=== PATIENT | female | born 1950 | race Caucasian/White ===

== ENCOUNTER → 2017-05-09 | Outpatient (CLI) | payer MEDICARE ==
[~2017-05-09] MED LIST: ALEN70TA3 PO; ALLO300T PO; ATEN100T PO; ATOR10TA PO; BRIN8DRO OP; CHLO10CA5 PO; CHOL100013 PO; CYCL10TA2 PO; IOHEXOL 180 MG/ML 10 ML VIAL. ONE; LISI1TAB3 PO; MELO15TA23 PO; METF750T2 PO; NAPR500T PO; TRAM50TA PO; TRAV5DRO EACHEYE; glaucoma eye drops; methylPREDNISolone ACETATE 40 MG/ML VIAL. ONE; methylPREDNISolone ACETATE 80 MG/ML VIAL. ONE
--- NOTE | 2017-05-10 01:34 | PAIN ---
DATE OF SERVICE: 05/09/2017 DIAGNOSES: Lumbar radiculopathy with lumbar degenerative disk disease, spinal stenosis and post-lumbar laminectomy syndrome. HISTORY OF PRESENT ILLNESS: The patient is a 66-year-old female who returns for followup, last seen on 07/11/2016. The patient did very well after caudal epidural steroid injections at that time with about 75-80% improvement overall. The patient reports she did very well for several months. The pain has returned now over the past 1 month or so in the low back and bilateral lower extremities, slightly worse on the right than the left, across the low back, radiating to the posterior gluteus, posterior thighs, posterior calf. It is worse with walking and standing, better with sitting or lying down. She rates the pain an 8 on a scale of 10 at all times; it is currently an 8 today. The patient reports it is aching and severe, it can be constant with walking and standing with tingling in her feet and burning in her feet and sitting down. The patient reports that she has been sleeping well, it has not been awakening her from sleep. She has no new motor or sensory deficits, no new bowel or bladder incontinence or other complaints, but still increased pain as noted and returning in a similar distribution which she had last fall. PAST MEDICAL HISTORY: Significant for glaucoma, cataracts, hypertension, dizziness, arthritis, headaches. PAST SURGICAL HISTORY: Previous surgeries include hysterectomy, knee surgery in 1972, carpal tunnel repair in 1993 on the right. ALLERGIES: THE PATIENT IS ALLERGIC TO SULFA AND LATEX. CURRENT MEDICATIONS: Include lisinopril, chlordiazepoxide, Fosamax, atenolol, meloxicam, metformin, vitamin D, Travatan eyedrops, Simbrinza eye drops. PHYSICAL EXAMINATION: VITAL SIGNS: Today, the patient's blood pressure is 132/60, pulse 67, respirations 18, temperature 98.2 degrees Fahrenheit, height is 5 feet 3 inches, weight is 185 pounds. GENERAL: The patient is awake, alert, oriented, appropriate, has very pleasant demeanor. HEENT: Exam shows normocephalic and atraumatic. Extraocular movements are intact and symmetrical. Oral cavity shows mucous membranes are moist and pink. Dentition is intact. NECK: Shows anterior throat supple without palpable lymphadenopathy noted. Swallow reflex is symmetrical. Neck shows full rotational motion of the cervical spine without difficulty or tenderness including extension and flexion. CHEST: Shows normal on inspection. Breath sounds are clear to auscultation bilaterally. HEART: Shows S1 and S2 clear. No murmurs auscultated. ABDOMEN: Obese, soft, nontender, nondistended. No palpable organomegaly. No new rebound or guarding demonstrated. BACK: Shows spine grossly in the midline. Normal-appearing thoracic kyphosis and mild flattening of the lumbar lordotic curvature. Well-healed midline surgical scar is again noted; with inspection, it shows symmetrical paraspinous musculature bilaterally throughout the upper, middle and lower distribution; with palpation, it shows some tenderness in the middle and lower distribution of paraspinous muscles, only diffusely without radiation. No tenderness over the spinous processes, sacrum or sacroiliac regions. The patient shows good rotational motion both laterally as well as extension and flexion of the lumbar spine without significant tenderness. EXTREMITIES: Lower extremities show deep tendon reflexes at 1+ in the patellar and tendo calcaneus tendons are equal. Motor exam is strong with 5/5 dorsiflexion, extension, quadriceps and hamstring flexion and symmetrical as well. Peripheral pulses are 1+ posterior tibial and dorsalis pedis pulses. No peripheral edema is noted. No clubbing, no cyanosis. The patient is able to stand, stand on her toes without significant difficulty. She is walking with a cane, however, in her left hand and appears to favor her right lower extremity to a moderate extent with ambulation. PLAN: Options were discussed with the patient at this time, the patient's old chart was reviewed as her current medication regimen and updated. Current review of systems is updated today as well, and we will proceed with caudal approach epidural steroid injections; she has done very well with these in the past with fluoroscopic guidance. Risks were again discussed including but not limited to bleeding, infection, possibility of epidural hematoma, subsequent neurological compromise, dural punctures, headaches, spinal cord and/or nerve damage, side effects of steroid medication and poor results regarding pain control. The patient understands and wishes to proceed. The patient will return to the clinic in approximately 2 weeks for followup. She was counseled as to return appointment, activity levels and side effects to be aware of. DIAGNOSES: Lumbar radiculopathy with lumbar degenerative disk disease, spinal stenosis and post-lumbar laminectomy syndrome. PROCEDURE: Caudal approach epidural steroid injection using C-arm fluoroscopic guidance under sterile prep and drape using local anesthetic. MEDICATIONS INJECTED: A total of 120 mg of Depo-Medrol plus 10 mL of preservative-free normal saline and 2 mL of Isovue for contrast. CONDITION AT DISCHARGE: Stable. The patient tolerated the procedure well, had no complications. SILVIANO BIRMINGHAM MD DR: ELIGIO/nts JOB#: [id number] / [id number]
== END | disposition home or self-care (01) ==
LOC: PNCL 10:48
PROVIDERS: ATTEND Anesthesiology
DX: M51.16 Intervertebral disc disorders with radiculopathy, lumbar region (principal); M48.06 Spinal stenosis, lumbar region; M96.1 Postlaminectomy syndrome, not elsewhere classified; I10 Essential (primary) hypertension; M19.90 Unspecified osteoarthritis, unspecified site; Z90.710 Acquired absence of both cervix and uterus; Z88.2 Allergy status to sulfonamides; Z91.040 Latex allergy status; Z91.048 Other nonmedicinal substance allergy status
CPT/HCPCS: 62323; J1030; J1040

== ENCOUNTER → 2017-05-30 | Outpatient (CLI) | payer MEDICARE, OTHER ==
--- NOTE | 2017-05-30 19:42 | PAIN ---
DATE OF SERVICE: 05/30/2017 DIAGNOSES: Lumbar radiculopathy with lumbar degenerative disk disease, lumbar spinal stenosis and post-lumbar laminectomy syndrome. HISTORY OF PRESENT ILLNESS: This is a 66-year-old female who returns for followup status post caudal approach epidural steroid injection x 1. The patient reports about 75% improvement after the last injections with some pain returning now over the past few days, but otherwise did very well for about 2-1/2 weeks. The patient reports the pain returning in the right leg across the low back, but much more noticeable on the right side than the left. The left side is doing much better. The patient reports pain is aching, tingling, burning, and cramping in her feet as well, worse with standing and walking more than half a block or so, but she is still walking daily. The patient reports pain on and off in intensity, but is always there at some degree. The patient reports it is an 8 on a scale of 10, ____, currently it is 7 on a scale of 10, which is its average. The patient reports it does not awaken her from sleep at night. She feels much better with lying down or sitting, it is worse with standing and walking, which is where she has most of the symptoms. The patient reports no new motor or sensory deficits, no new bowel or bladder incontinence or other complaints. PHYSICAL EXAMINATION: VITAL SIGNS: Today, the patient's blood pressure 138/46, pulse 56, respirations are 20, temperature is 97.9 degrees Fahrenheit, weight is 183 pounds. GENERAL: The patient is awake, alert, oriented, appropriate, very pleasant demeanor. HEENT: Head shows normocephalic, atraumatic. Extraocular movements are intact, symmetrical. Oral cavity, mucous membranes are moist and pink. Dentition is intact. NECK: Shows anterior throat supple without palpable lymphadenopathy noted. Swallow reflex is symmetrical. CHEST: Normal on inspection. Breath sounds are clear to auscultation bilaterally. HEART: Shows S1 and S2 clear. ABDOMEN: Soft, nontender, nondistended. No palpable organomegaly is noted. BACK: Shows spine grossly midline. Slight exaggeration of thoracic kyphosis, some minor flattening of lumbar lordotic curvature. Well-healed surgical scar is noted throughout the lumbar distribution. Lumbar paraspinous muscle shows symmetrical. On inspection with palpation shows moderate tenderness bilaterally, but without radiation. EXTREMITIES: Lower extremities showed deep tendon reflexes at 1+ in the patellar and tendo calcaneus tendons are equal. Motor exam is strong with 5/5 dorsiflexion, extension, quadriceps and hamstring flexion equal. Options were discussed with the patient. We will proceed with a second in this series caudal approach epidural steroid injection today with fluoroscopic guidance. Risks were again discussed including, but not limited to bleeding, infection, possibility of epidural hematoma and subsequent neurologic compromise, dural puncture, headaches, spinal cord and/or nerve damage, side effects of steroid medication and poor results regarding pain control. The patient understands and wishes to proceed. The patient will return to clinic in approximately 2 weeks for followup, was counseled on return appointment, activity level and side effects to be aware of. DIAGNOSIS: Lumbar radiculopathy with lumbar spinal stenosis, degenerative disk disease and post-lumbar laminectomy syndrome. PROCEDURE: Caudal approach epidural steroid injection using C-arm fluoroscopic guidance under sterile prep and drape using local anesthetic. MEDICATION INJECTED: A total of 120 mg Depo-Medrol plus 10 mL of preservative normal saline and 2 mL of Isovue contrast. CONDITION AT DISCHARGE: Stable. The patient tolerated procedure well, had no complications. SILVIANO BIRMINGHAM MD DR: ELIGIO/nts JOB#: [id number] / [id number]
== END | disposition home or self-care (01) ==
LOC: PNCL 10:13
PROVIDERS: ATTEND Anesthesiology
DX: M51.16 Intervertebral disc disorders with radiculopathy, lumbar region (principal); M48.06 Spinal stenosis, lumbar region; M96.1 Postlaminectomy syndrome, not elsewhere classified; Z91.040 Latex allergy status; Z88.2 Allergy status to sulfonamides; Z91.048 Other nonmedicinal substance allergy status
CPT/HCPCS: 62323; J1030; J1040

== ENCOUNTER → 2021-03-24 | Outpatient (CLI) | payer MEDICARE, OTHER ==
[~2021-03-24] MED LIST changes: -IOHEXOL 180 MG/ML 10 ML VIAL. ONE; +LISI1TAB23 PO; -LISI1TAB3 PO; -METF750T2 PO; +METF750T39 PO; +NAPR-683 PO; -NAPR500T PO; -methylPREDNISolone ACETATE 40 MG/ML VIAL. ONE; -methylPREDNISolone ACETATE 80 MG/ML VIAL. ONE
--- NOTE | 2021-03-24 14:20 | KCIC ---
MR LUMBAR SPINE WO [id number] Date: 03/24/2021 10:29 AM Indication: Low back pain. LBP a couple of yrs.,surgery 2013, bilateral hip pain,hurts to stand/walk . Comparison: None. Technique: Multi-planar multi-weighted magnetic resonance imaging of the lumbar spine was performed w ithout intravenous contrast using the standard lumbar spine protocol. FINDINGS: Postsurgical changes of posterior instrumentation at L4-5. 4 mm anterolisthesis at L4-5. No acute fracture. Mild to moderate multilevel degenerative disc desicc ation and disc height loss. Bone marrow signal intensity is normal. The conus terminates at a normal level. No abnormal signal is seen within the visualized distal spina l cord. No clumping of intrathecal nerve roots. No soft tissue abnormality in the visualized abdomen or pelvis. T12-L1: No disc bulge. No facet arthropathy. No significant spinal stenosis or neural foraminal narro wing. L1-L2: Disc bulge. Mild facet arthropathy. No significant spinal stenosis. Mild bilateral neural fora adilson narrowing. L2-L3: Disc bulge. Moderate facet arthropathy. Mild spinal stenosis. Mild right neural foraminal narr owing. L3-L4: Disc bulge. Moderate to severe facet arthropathy. Ligamentum flavum thickening. Moderate spina l stenosis. Mild right neural foraminal narrowing. L4-L5: Posterior decompression. Mild spinal canal stenosis and left lateral recess narrowing. No neur al foraminal narrowing. L5-S1: Disc bulge. Mild facet arthropathy. No significant spinal stenosis or neural foraminal narrowi ng. IMPRESSION: Moderate lumbar spondylosis, detailed level by level above. No severe spinal canal stenosis or severe neuroforaminal narrowing. Electronically signed by: Danielito Alston MD (03/24/2021 2:18 PM) [id number]
== END ==
LOC: KCIC MRI 10:00
PROVIDERS: ATTEND Family Medicine
DX: M47.817 Spondylosis without myelopathy or radiculopathy, lumbosacral region (principal); M48.061 Spinal stenosis, lumbar region without neurogenic claudication
CPT/HCPCS: 72148

== ENCOUNTER → 2021-04-12 | Outpatient (CLI) | payer MEDICARE, OTHER ==
--- NOTE | 2021-04-12 16:27 | RAD ---
PQRS Compliance Statement: One or more of the following individualized dose reduction techniques were utilized for this examinat ion: 1. Automated exposure control 2. Adjustment of the mA and/or kV according to patient size 3. Use of iterative reconstruction technique CT LUMBAR SPINE WO 04/12/2021 11:19 AM Indication: Lumbar pain COMPARISON: None available. TECHNIQUE: Multiple axial CT images of the lumbar spine are obtained without intravenous contrast. Co timothy and sagittal reformats are provided. FINDINGS: There is 3 mm retrolisthesis of L1 on L2. There is 2 mm anterolisthesis of L3 on L4. 5 mm anterolisth esis of L4 on L5. Bilateral pedicle screws and dual rods identified at L4-L5 with posterior fusion. T here is a superior endplate Schmorl's node at L2 without significant height loss. There is mild disc height loss at L3-L4 and moderate disc height loss at L4-L5. Mild disc height loss at L5-S1 with vacu um disc phenomena at L3-L4 and L5-S1. No acute fractures identified. Abdominal aorta is normal in munir iber. No suspicious retroperitoneal abnormality. Appendix is normal. Calcified plaque involving the a bdominal aorta which is normal in course and caliber. Sacrum is normal in appearance. L1-L2: Disc is normal in configuration. Mild right and moderate left facet arthropathy. Mild neurofor aminal stenosis. No spinal canal stenosis. L2-L3: Mild disc bulge. Moderate facet arthropathy, left greater than right. There is ligamentum flav um infolding. Mild bilateral neuroforaminal stenosis. No significant spinal canal stenosis. L3-L4: There is a circumferential disc bulge. Severe facet arthropathy ligamentum flavum infolding. M oderate bilateral neuroforaminal stenosis. Moderate spinal canal stenosis. L4-L5: There is a circumferential disc bulge asymmetric to the left. Severe facet arthropathy. This l evel is fused posteriorly. Moderate to severe left and moderate right neural foraminal stenosis. Mild to moderate spinal canal stenosis. L5-S1: Disc is normal in configuration. Moderate severe facet arthropathy. No neuroforaminal or spina l canal stenosis. IMPRESSION: Mild to moderate degenerative changes of the lumbar spine as described in detail above. Posterior fus ion identified at L4-L5 without evidence for hardware failure. There is no lucency surrounding the jessica rdware or fracture of the hardware. Electronically signed by: Kaye Farfan MD (04/12/2021 4:25 PM) [id number]
== END ==
LOC: CT 11:04
PROVIDERS: ATTEND Neurological Surgery
DX: M47.817 Spondylosis without myelopathy or radiculopathy, lumbosacral region (principal); M48.061 Spinal stenosis, lumbar region without neurogenic claudication; M51.26 Other intervertebral disc displacement, lumbar region; M43.16 Spondylolisthesis, lumbar region
CPT/HCPCS: 72131